=== PATIENT | male | born 1960 | race Caucasian/White ===

== ENCOUNTER 2016-06-18 06:40 | Inpatient (IN) | payer OTHER, BC ==
[~2016-06-18] VITALS: Ht 190.5 cm; Wt 164.0 kg
[~2016-06-18 06:40] MED LIST: BUPROPION XL150 MG PO; COLCRYS0.6 MG PO; GLUCOTROL5 MG PO; IRON325 M1 PO; JANUMET 50/11 TABLET PO; KLONOPIN1 MG PO; LIPITOR10 MG PO; MOBIC15 MG PO; NORVASC5 MG PO; PRINIVIL20 MG PO; PT DOES NOT KNOW MED; TRAMADOL HCL E200 M1 PO
[2016-06-18 07:15] LABS: POINT-OF-CARE METER ID UU14174212
[2016-06-18 07:17] VITALS: BP 137/83
[2016-06-18 12:02] LABS: POINT-OF-CARE METER ID UU13113675; POINT-OF-CARE USER ID 515036437
[2016-06-18 14:10] VITALS: BP 137/88
[2016-06-18 19:47] VITALS: BP 139/78
[2016-06-19 00:01] VITALS: BP 135/68
[2016-06-19 04:19] VITALS: BP 153/76
[2016-06-19 06:01] LABS: HEMATOCRIT 39.1 % (38.0-50.0); MCV 88.5 FL (86-99)
[2016-06-19 06:25] LABS: ANION GAP 11 MEQ/L (2-14); CHLORIDE 101 MEQ/L (99-109); GFR ESTIMATE (CALCULATED) 39 mL/min/; GLUCOSE 208 mg/dL (70-99); POTASSIUM 4.1 MEQ/L (3.7-5.4); SAMPLE HEMOLYSIS CHECK 0; SAMPLE ICTERIC CHECK 0; SAMPLE LIPEMIA CHECK 0; SODIUM 140 MEQ/L (136-147); UREA NITROGEN (BUN) 21 mg/dL (9-23)
[2016-06-19 06:37] LABS: POINT-OF-CARE METER ID UU14188577
[2016-06-19 08:15] VITALS: BP 128/65
[2016-06-19 11:30] VITALS: BP 139/74
[2016-06-19 11:43] LABS: POINT-OF-CARE METER ID UU14188577
[2016-06-19 16:36] VITALS: BP 137/70
[2016-06-19 17:00] LABS: POINT-OF-CARE METER ID UU14149397
[2016-06-19 19:20] LABS: POINT-OF-CARE METER ID UU14188577
[2016-06-19 22:03] LABS: POINT-OF-CARE METER ID UU14188577
[2016-06-20 00:12] VITALS: BP 168/92
[2016-06-20 06:21] LABS: HEMATOCRIT 36.7 % (38.0-50.0); MCV 86.4 FL (86-99)
[2016-06-20 06:40] LABS: POINT-OF-CARE METER ID UU14149397
[2016-06-20 06:43] LABS: ANION GAP 10 MEQ/L (2-14); CHLORIDE 99 MEQ/L (99-109); GFR ESTIMATE (CALCULATED) 52 mL/min/; GLUCOSE 215 mg/dL (70-99); SAMPLE HEMOLYSIS CHECK 0; SAMPLE ICTERIC CHECK 0; SAMPLE LIPEMIA CHECK 0; SODIUM 135 MEQ/L (136-147); UREA NITROGEN (BUN) 16 mg/dL (9-23)
[2016-06-20 07:51] VITALS: BP 125/83
[2016-06-20] MEDS ORDERED: TYLENOL REGULA325 MG PO (09:15)
[2016-06-20] MEDS ORDERED: XARELTO10 MG PO (09:16)
[2016-06-20] MEDS ORDERED: DOCUSATE SODIU100 MG PO (09:16)
[2016-06-20] MEDS ORDERED: HYDROMORPHONE HC4 MG PO (09:16)
[2016-06-20] MEDS ORDERED: OXYCONTIN10 MG PO (09:16)
[2016-06-20] MEDS ORDERED: LIDOCAINE700 MG TD (09:16)
== END 2016-06-20 14:28 | DRG 470 ==
LOC: 2SOUTH 06:40 → 3EAST 06:40 → 2SOUTH 12:45 → 3EAST 14:03 → 2SOUTH 15:54 → 3EAST 06-20 14:28
PROVIDERS: Orthopaedic Surgery; Physician Assistant
PROC: 0SRD0J9 Replacement of Left Knee Joint with Synthetic Substitute, Cemented, Open Approach (ICD-10-PCS; principal; 2016-06-18)
DX: M17.12 Unilateral primary osteoarthritis, left knee (principal); Z68.42 Body mass index [BMI] 45.0-49.9, adult; E66.01 Morbid (severe) obesity due to excess calories; N18.9 Chronic kidney disease, unspecified; I12.9 Hypertensive chronic kidney disease with stage 1 through stage 4 chronic kidney disease, or unspecified chronic kidney disease; E11.22 Type 2 diabetes mellitus with diabetic chronic kidney disease; F32.9 Major depressive disorder, single episode, unspecified; K21.9 Gastro-esophageal reflux disease without esophagitis; G47.33 Obstructive sleep apnea (adult) (pediatric); E78.5 Hyperlipidemia, unspecified; E78.00 Pure hypercholesterolemia, unspecified; I83.93 Asymptomatic varicose veins of bilateral lower extremities; M10.9 Gout, unspecified; J30.2 Other seasonal allergic rhinitis; Z87.891 Personal history of nicotine dependence; Z99.89 Dependence on other enabling machines and devices; Z79.4 Long term (current) use of insulin; Z79.84 Long term (current) use of oral hypoglycemic drugs
CPT/HCPCS: 80048; 82948; 85014; 85018; C1713; J0131; J0690; J1815; J1885; J2250; J2765; J7050; J7120; L1820; S0020

== ENCOUNTER 2016-07-10 12:16 | Emergency (ER) | payer OTHER, BC ==
[~2016-07-10] VITALS: Ht 193 cm; Wt 150.0 kg
[~2016-07-10 12:16] MED LIST changes: +DOCUSATE SODIU100 MG PO; +HYDROMORPHONE HC4 MG PO; +LIDOCAINE700 MG TD; +OXYCONTIN10 MG PO; +TYLENOL REGULA325 MG PO; +XARELTO10 MG PO
[2016-07-10 14:00] LABS: BASOPHIL COUNT 0.1 K/uL (0-0.1); EOSINOPHIL (%) 1.3 % (0-5); EOSINOPHIL COUNT 0.2 K/uL (0-0.3); HEMATOCRIT 42.1 % (38.0-50.0); IMMATURE GRANULOCYTE (%) 0.6 % (0.0-0.7); IMMATURE GRANULOCYTE COUNT 0.1 K/uL; INSTRUMENT ABS NEUTROPHIL CT 8.7 K/uL; LYMPHOCYTE COUNT 2.2 K/uL (1.0-2.8); MCHC 34.2 G/DL (30.0-36.0); MCV 84.7 FL (86-99); MEAN PLAT.VOLUME 10.4 uM^3 (9.0-12.4); MONOCYTE (%) 5.2 % (3-12); MONOCYTE COUNT 0.6 K/uL (0-0.8); NEUTROPHIL (%) 73.5 % (45-76); NEUTROPHIL COUNT 8.7 K/uL (1.8-6.4); PLATELET COUNT 376 K/uL (156-360); RBC DIS.WIDTH-CV 13.4 % (11.8-14.6); RBC DIS.WIDTH-SD 41.1 % (39-53); RED BLOOD COUNT 4.97 M/uL (4.00-5.50); WHITE BLOOD COUNT 11.8 K/uL (4.1-10.2)
[2016-07-10 14:12] LABS: CHLORIDE 103 mEq/L (99-109); POTASSIUM 4.2 mEq/L (3.7-5.4); SODIUM 136 mEq/L (136-147)
[2016-07-10 14:14] LABS: GLUCOSE 199 mg/dL (70-99)
[2016-07-10 14:16] LABS: ANION GAP 16 MEQ/L (2-14)
[2016-07-10 14:18] LABS: GFR ESTIMATE (CALCULATED) 33 mL/min/
[2016-07-10 14:19] LABS: UREA NITROGEN (BUN) 25 mg/dL (9-23)
[2016-07-10 14:21] LABS: CREATINE KINASE 150 IU/L (1-294)
[2016-07-10 14:48] LABS: ADD MIUA? YES; BILIRUBIN NEGATIVE; BLOOD SMALL; COLOR YELLOW ((YELLOW)); GLUCOSE (STRIP) NEGATIVE; KETONES NEGATIVE; LEUKOCYTES NEGATIVE; NITRITE NEGATIVE; PROTEIN (STRIP) 100; SPECIFIC GRAVITY 1.017 (1.000-1.030); UROBILINOGEN 0.2 MG/DL (0.2-1.0)
[2016-07-10 14:57] LABS: BACTERIA RARE /HPF; EPITHELIAL CELLS RARE /HPF; HYALINE CASTS 15-20 /LPF; MUCUS TRACE /LPF; RED BLOOD CELLS 0-5 /HPF (0-5); WHITE BLOOD CELLS 0-5 /HPF (0-5)
[2016-07-10 16:36] VITALS: BP 131/70
== END 2016-07-10 16:37 | disposition home or self-care (01) ==
LOC: EME 12:16
PROVIDERS: Physician Assistant
DX: E86.0 Dehydration (principal); N28.9 Disorder of kidney and ureter, unspecified; E11.65 Type 2 diabetes mellitus with hyperglycemia; G89.29 Other chronic pain; E78.5 Hyperlipidemia, unspecified; I10 Essential (primary) hypertension; Z87.442 Personal history of urinary calculi; G47.30 Sleep apnea, unspecified; Z96.652 Presence of left artificial knee joint; Z87.891 Personal history of nicotine dependence
CPT/HCPCS: 80048; 81003; 82550; 85025; 99281; 99284; J3010; J7030